=== PATIENT | female | born 1990 | race Caucasian/White ===

== ENCOUNTER 2022-11-23 09:53 | Outpatient (CLI) | payer BC, SELFPAY ==
--- NOTE | ~2022-11-23 | MR_ITS ---
MRI of the lumbar spine Clinical History: Back pain Technique: Axial T2-weighted images, and sagittal T1-weighted, T2-weighted, and T2 fat-sat images wer e acquired. Findings: There is no fracture or subluxation of lumbar spine. Vertebral bodies maintain normal heigh t and alignment. Bone marrow signals are unremarkable. At L1-L2, there is minimal disc bulge. No spinal canal stenosis or neural foraminal narrowing. At L2-L3 and L3-L4, there is no disc bulge or herniation. No spinal canal stenosis or neural foramina l narrowing at these levels. At L4-L5, there is minimal disc bulge, with mild to moderate facet arthropathy. No central canal sten osis or neural foraminal narrowing. At L5-S1, there is central disc protrusion. There is moderate facet arthropathy. No central canal ramon nosis or neural foraminal narrowing. Paravertebral soft tissues are unremarkable. Impression: Mild degenerative change, as detailed above. Reviewed, dictated and finalized at location . Impression: Mild degenerative change, as detailed above.
== END 2022-11-23 09:54 ==
PROVIDERS: PCP Pediatrics; Visit Provider Pediatrics
DX: M47.816 Spondylosis without myelopathy or radiculopathy, lumbar region (principal)
CPT/HCPCS: 72148